=== PATIENT | male | born 1970 | race Caucasian/White ===

== ENCOUNTER → 2019-12-31 09:04 | Outpatient (BNVA) | payer BC, SELFPAY | PROVIDERS: Family Provider Family Medicine; PCP Family Medicine; Visit Provider Nurse Practitioner | DX: F33.0 Major depressive disorder, recurrent, mild (principal); F41.1 Generalized anxiety disorder | CPT/HCPCS: 99213 ==

== ENCOUNTER → 2020-03-24 08:22 | Outpatient (BNVA) | payer BC, SELFPAY | PROVIDERS: Family Provider Family Medicine; PCP Family Medicine; Visit Provider Nurse Practitioner | DX: F41.1 Generalized anxiety disorder (principal); F33.0 Major depressive disorder, recurrent, mild; F43.12 Post-traumatic stress disorder, chronic | CPT/HCPCS: 99213 ==

== ENCOUNTER 2020-04-10 21:50 | Inpatient (IN) | payer MEDICARE, SELFPAY ==
[2020-04-10 22:03] VITALS: BP 140/97; PULSE 90; RESP 16; TEMP 36.7; O2SAT 98; BMI 25.0
--- NOTE | 2020-04-10 22:13 | W.ED.PSYCH ---
HPI - Psych General: Chief Complaint: Psychiatric Symptoms Stated Complaint: mhe Time Seen by Provider: 04/10/20 22:13 Source: patient and other (Court ordered 96-hour hold) History of Present Illness: HPI Narrative: 50-year-old male brought in by [facility]'s department with court ordered 96-hour hold with affidavits attached. Patient denies being suicidal but admits to using meth 10 hours ago he smokes it never injects. Affidavit states that he has been using drugs and hallucinates hears things and sees things according to the affidavit patient denies this. Does not use alcohol but does vape. Denies any chest pain nausea vomiting or diarrhea. No fever chills or cough. He has not been taking his medications prescribed by his psychiatrist, Dr. Orr as prescribed. Denies being hospitalized here in the past or anywhere for psychiatric issues. Associated symptoms: Deny suicidal ideation Review of Systems General: Reports: 10 or more systems reviewed and unremarkable except in HPI and below Const: Denies: fever(s) or chills Eyes: Denies: change in vision ENMT: Denies: throat pain Card: Denies: chest pain Resp: Denies: dyspnea GI: Denies: abdominal pain, nausea, vomiting or change in bowel habits Musc: Denies: muscle weakness Skin/Breast: Denies: rash Neuro: Denies: headache(s) Psych: Denies: hopelessness or suicidal ideation Endo: Denies: polyuria Wolf/Lymph: Denies: easy bruising or easy bleeding All/Imm: Denies: urticaria PFSH ED PFSH: Medical History (Updated 04/10/20 @ 22:59 by Kika Dumont MD) Generalized anxiety disorder Major depressive disorder, recurrent, mild Social History (Updated 12/31/19 @ 09:20 by Brittani Fritz LPN) Smoking and tobacco status: current every day smoker e-cigarettes E-Cigarette Details: vaporizer device Physical Exam Const: COMMON NORMALS: no acute distress, patient oriented x3, alert and well nourished HENMT: COMMON NORMALS: normocephalic and Normal external nose present HEAD & SCALP: normocephalic NOSE: Normal external nose present MOUTH: no trismus Eye: COMMON NORMALS: EOMs intact bilaterally and conjunctivae normal CONJUNCTIVA: Yes conjunctivae normal Neck/C-Spine: COMMON NORMALS: full ROM, no lymphadenopathy and supple CERVICAL SPINE: Yes cervical ROM normal Lymph: LYMPHATIC: no lymphadenopathy noted Resp: COMMON NORMALS: normal respiratory effort, No retractions, No use of accessory muscles and clear to auscultation bilaterally EFFORT & INSPECTION: Yes able to speak in complete sentences AUSCULTATION: clear to auscultation bilaterally Cardio: COMMON NORMALS: regular rate and regular rhythm RATE: regular rate RHYTHM: regular rhythm GI: COMMON NORMALS: Normal to inspection, nondistended, normoactive bowel sounds present, Soft to palpation, non-tender and no masses INSPECTION: Yes normal to inspection AUSCULTATION: Yes normoactive bowel sounds PALPATION: Yes Soft to palpation, No Guarding due to palpation present (GI) and No Rigid due to palpation Back/Pelvis: OTHER: Normal range of motion Extremity: GENERAL: Yes normal exam except as noted Neuro: COMMON NORMALS: patient oriented x3 and CN's II-XII intact bilaterally SENSORIUM/ORIENTATION: Yes alert SPEECH: speech normal Psych: COMMON NORMALS: mental status grossly normal Skin: COMMON NORMALS: no rashes or lesions noted GENERAL SKIN EXAM: no rashes or lesions noted MDM - Psych MDM Narrative: Medical decision making narrative: d/w Dr Altamirano. Orders placed for admission to [facility] you. Lab Data: Attestation: I reviewed the patient's lab results. Labs: Lab Results 04/10/20 04/10/20 Range/Units 22:25 22:25 WBC 7.9 (4.0-10.0) 10^3/ uL RBC 5.03 (4.1-5.3) 10^6/u L Hgb 14.9 (11.7-16.6) g/dL Hct 45.8 (42.0-52.0) % MCV 91.1 (80-94) fL MCH 29.6 (28.0-34.0) pg MCHC 32.5 (30.0-36.0) g/dL RDW 13.4 (12.1-15.1) % Plt Count 320 (130-400) 10^3/c mm MPV 9.2 (7.4-10.4) fL Neut % (Auto) 60.4 % Lymph % (Auto) 25.2 % Isabela % (Auto) 11.4 % Eos % (Auto) 2.4 % Baso % (Auto) 0.5 % Neut # (Auto) 4.8 (1.8-7.7) 10^3/u L Lymph # (Auto) 2.0 (0.8-4.8) 10^3/u L Isabela # (Auto) 0.9 (0.2-0.9) 10^3/u L Eos # (Auto) 0.2 (0.0-0.8) 10^3/u L Baso # (Auto) 0.0 (0.0-0.1) 10^3/u L Nucleated RBC % (a uto) 0 % Nucleated RBCs # 0.0 /100WBC Sodium 138 (136-145) mmol/L Potassium 4.2 (3.5-5.1) mmol/L Chloride 99 (98-107) mmol/L Carbon Dioxide 28 (22-29) mmol/L Anion Gap 15.2 (5-19) BUN 14 (6-20) mg/dL Creatinine 1.0 (0.7-1.2) mg/dL GFR Calculation 79.1 L (90-130) mL/min Glucose 113 (65-115) mg/dL Calculated Osmolal ity 283 L (285-295) mOsm/k g Calcium 9.2 (8.5-10.5) mg/dL Total Bilirubin 0.2 (0.15-1.2) mg/dL AST 32 (0-40) U/L ALT 38 (0-41) U/L Alkaline Phosphata se 109 (40-130) IU/L Total Protein 7.3 (6.6-8.7) g/dL Albumin 4.7 (3.5-5.2) g/dL Globulin 2.6 (1.3-4.6) g/dL Salicylates 0.5 L (3-10) mg/dL Acetaminophen < 5.0 L (10-30) ug/mL Ethyl Alcohol < 10 (0-10) mg/dL EKG Data^: EKG 1: Attestation: I personally reviewed and interpreted this EKG as follows: EKG interpretation date: 04/10/20 EKG interpretation time: 22:43 Interpretation: Normal sinus rhythm rate [address] elevation, normal PA interval. Poor R wave progression Discharge Plan Discharge Patient Disposition: Admitted As Inpatient Clinical Impression: Substance abuse, Hallucinations Condition: Stable Prescriptions: No Action aripiprazole [Abilify] 10 mg tablet 10 mg PO DAILY Qty: 30 RF: 2 carbamazepine [Tegretol] 200 mg tablet See Rx Instructions PO BID Qty: 90 RF: 2 fluoxetine [Prozac] 20 mg capsule 20 mg PO DAILY Qty: 30 RF: 2 nortriptyline 75 mg capsule 75 mg PO .at bed Qty: 30 RF: 2 Referrals: Luiz Bermudez DO [Primary Care Provider] - Coding Level of Care Code ED Ethologist for Chg Fwd Exam Comprehensive
--- NOTE | 2020-04-10 22:14 | ECG_ITS ---
Measurements Intervals [place] Rate: 81 P: 62 [place]: 153 QRS: 60 QRSD: 105 T: 56 QT: 343 QTc: 398 SINUS RHYTHM No previous ECG available for comparison Electronically Signed On 04-11-2020 13:04:50 CDT by Alex Haines M.D. [email or web address]
[2020-04-10 22:36] LABS: Basophils % 0.5 %; Eosinophils # 0.2 10^3/uL (0.0-0.8); Eosinophils % 2.4 %; Hematocrit 45.8 % (42.0-52.0); Hemoglobin 14.9 g/dL (11.7-16.6); Lymphocytes % 25.2 %; Mean Corpuscular HGB Conc 32.5 g/dL (30.0-36.0); Mean Corpuscular Hemoglobin 29.6 pg (28.0-34.0); Mean Corpuscular Volume 91.1 fL (80-94); Mean Platelet Volume 9.2 fL (7.4-10.4); Monocytes # 0.9 10^3/uL (0.2-0.9); Monocytes % 11.4 %; Neutrophils # 4.8 10^3/uL (1.8-7.7); Neutrophils % 60.4 %; Nucleated Red Blood Cells % 0 %; Platelet Count 320 10^3/cmm (130-400); Red Blood Count 5.03 10^6/uL (4.1-5.3); Red Cell Distribution Width 13.4 % (12.1-15.1); White Blood Count 7.9 10^3/uL (4.0-10.0)
[2020-04-10 22:53] LABS: Acetaminophen < 5.0 ug/mL (10-30); Alanine Aminotransferase 38 U/L (0-41); Albumin Level 4.7 g/dL (3.5-5.2); Alcohol Level < 10 mg/dL (0-10); Alkaline Phosphatase 109 IU/L (40-130); Anion Gap 15.2 (5-19); Aspartate Amino Transferase 32 U/L (0-40); Blood Urea Nitrogen 14 mg/dL (6-20); Calcium 9.2 mg/dL (8.5-10.5); Carbon Dioxide 28 mmol/L (22-29); Chloride 99 mmol/L (98-107); Globulin 2.6 g/dL (1.3-4.6); Glomerular Filtration Rate 79.1 mL/min (90-130); Glucose 113 mg/dL (65-115); Osmolality Calculated 283 mOsm/kg (285-295); Potassium 4.2 mmol/L (3.5-5.1); Salicylate 0.5 mg/dL (3-10); Sodium 138 mmol/L (136-145); Total Bilirubin 0.2 mg/dL (0.15-1.2); Total Protein 7.3 g/dL (6.6-8.7)
[2020-04-10 23:32] VITALS: PULSE 89; RESP 16; O2SAT 96
[2020-04-10 23:33] VITALS: BP 125/88; PULSE 86; RESP 16; TEMP 36.7; O2SAT 94
[2020-04-11 00:36] LABS: Amphetamines Screen Urine Positive (Negative); Barbiturates Screen Urine Negative (Negative); Benzodiazepines Screen Urine Negative (Negative); Cocaine Screen Urine Negative (Negative); Opiate Screen Urine Negative (Negative); PCP Screen Urine Negative (Negative); THC Screen Urine Negative (Negative)
[2020-04-11 06:00] VITALS: BP 111/68; PULSE 79; RESP 17; TEMP 36.4; O2SAT 98
[2020-04-11] MEDS: hyDROXYzine 25 mg Capsule 50 MG PO (11:48)
--- NOTE | 2020-04-11 11:50 | PC.NURSE ---
PRN VISTARIL [address] PT C/O ANXIETY. PT STATED HE MIGHT BE HAVING A PANIC ATTACK. BP 132/89 HR 88. WILL CONT TO MONITOR.
[2020-04-11 13:08] VITALS: BP 129/80; PULSE 81; RESP 18; TEMP 36.6; O2SAT 100
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
[2020-04-11] MEDS: fluoxetine 20 mg Capsule PO (14:01)
[2020-04-11 19:35] VITALS: BP 112/76; PULSE 96; RESP 23; TEMP 36.8; O2SAT 99
[2020-04-11] MEDS: nortriptyline 25 mg Capsule 75 MG PO (20:10)
[2020-04-11] MEDS: trazodone 50 mg Tablet PO (20:10)
[2020-04-12 06:00] VITALS: BP 121/82; PULSE 95; RESP 20; TEMP 36.9; O2SAT 98
[2020-04-12] MEDS: fluoxetine 20 mg Capsule PO (08:18)
--- NOTE | 2020-04-12 10:04 | PM.NPN ---
Subjective NPU Subjective: Interval history: Patient is without complaint. No requests made. Patient acknowledges treatment plan and expected discharge planning to begin on Tuesday when the social media campaign manager and family are able to confer regarding whether he needs to go to inpatient rehab or outpatient. Selected Entries 04/11/20 06:00 04/11/20 13:08 04/11/20 19:35 Blood Pressure 111/68 129/80 112/76 04/12/20 06:00 Blood Pressure 121/82 Mental Status Exam MSE Comments: Mental Status Exam: The patient is a disheveled man with good eye contact. There are no tics or tremors. His speech is easily understood. He is believed to be a reliable informant of the best of his ability is information provided is internally consistent and consistent with that in his chart. Appearance: hygiene is fair; no gross neurological deficits., gait is unremarkable; AIMS=0 Speech: Speech is of normal rate and rhythm and easily understood. Thought processes: Thought processes are abstract. Judgment is not adequate for safety. Associations: intact Psychotic processes: There is no indication of guarding or paranoia. There is no attention to the internal stimuli. Auditory and visual hallucinations are denied. Judgment: Insight is fair. Problem solving skills are adequate for safety. Orientation: The patient is oriented to person, place time and situation. Memory: no deficits noted in immediate, intermediate, or remote spheres. Attention: The patient is alert and interpersonally engaged. Language: Verbalizations are coherent. Fund of knowledge: Fund of knowledge is adequate. Affect/Mood: Affect is consistent with a depressed mood. he denied suicidal ideation Affective range constricted Psychosis: perception unimpaired except through cognitive distortion; reality testing challenged but intact. Vitals/I&O/Wt Last Vital Signs Temp 98.4 F 04/12/20 06:00 Pulse 95 04/12/20 06:00 Resp 20 H 04/12/20 06:00 BP 121/82 04/12/20 06:00 Pulse Ox 98 04/12/20 06:00 Weight last 48 hrs Weight 74.843 kg Data NPU : 04/10/20 22:25 04/10/20 22:25 A&P Additional A&P Information Diagnoses: Amphetamine intoxication Amphetamine abuse disorder Major depression?recurrent, mild Assessment:Curtis Mcclellantyson is likely accurate and that he has fallen into a maladaptive pattern of methamphetamine use. He has poor insight into the specific effects of how methamphetamine has affected him but has good insight into how it has affected his family and life. Prognosis is good for him to achieve a clean state with assistance given his response to alcohol rehabilitation in the past. There is no indication that he truly does have bipolar disorder?type I. As such, he may not need the side effects that occur from medications for this diagnosis. However he does have a history of depression and we will restart those medications at this time. Treatment plan: Due to the psychiatric conditions and treatment listed in the Assessment and Plan - the patient requires continued hospitalization. Will provide a safe and therapeutic environment for patient.. Will continue inpatient treatment to allow for medication adjustment and monitoring. Will continue q15 min safety checks. Will restart fluoxetine 20 mg daily and nortriptyline 75 mg at bedtime. Trazodone 50 mg at bedtime will be provided in the hospital to assist with sleep. Hospital day #3: No changes at this time. Monitor patient's mood, sleep, appetite, and behavior closely. Encourage patient to participate in individual and group therapeutic sessions on the vivar. Estimated length of stay 5 days The expected benefits and potential side effects of patient's psychiatric medications were discussed with the patient. The patient understands and consents to treatment.CRITERIA FOR DISCHARGE: stable on medications and no longer an imminent risk Involuntary Hold Information 96 Hour Hold: 96 Hour Involuntary Admission: Yes 96 Hour Hold Ending Date: 04/16/20 96 Hour Hold Ending Time: 22:56 Attestations U Medical Necessity Statement*: Patient will remain in the hospital another 2-4 nights for assessment of medication efficacy and tolerability. Coding Level of Care Code Acute Clinical Nursing Instructor for Xena Rain
[2020-04-12 14:00] VITALS: BP 117/68; PULSE 67; RESP 18; TEMP 36.8
--- NOTE | 2020-04-12 14:36 | PC.RESP ---
Smoking Cessation information and a schedule of classes to patient.
[2020-04-12] MEDS: nortriptyline 25 mg Capsule 75 MG PO (20:39)
[2020-04-12] MEDS: trazodone 50 mg Tablet PO (20:39)
[2020-04-12] MEDS: hyDROXYzine 25 mg Capsule 50 MG PO (20:39)
--- NOTE | 2020-04-12 20:41 | PC.NURSE ---
TRAZODONE 50 MG PO GIVEN FOR SLEEP VISTARIL 50 MG PO GIVEN FOR ANXIETY.
[2020-04-12 21:43] VITALS: BP 125/70; PULSE 104; RESP 22; TEMP 36.7; O2SAT 97
[2020-04-13 06:00] VITALS: BP 114/80; PULSE 95; RESP 20; TEMP 36.4; O2SAT 98
[2020-04-13] MEDS: fluoxetine 20 mg Capsule PO (08:12)
--- NOTE | 2020-04-13 13:21 | P.PN_ITS ---
Subjective NPU Subjective: Interval history: Patient states that he feels much better. I again discussed the patient's pending discharge planning, which will get underway when the social sciences department chair and family confer regarding whether he needs to go to inpatient rehab or outpatient. Medications: Reviewed: Yes Medication Review Details: Current Medications Acetaminophen (Tylenol) 650 mg PO Q4H PRN PRN Reason: MILD PAIN Benztropine Mesylate (Cogentin) 1 mg PO BID PRN PRN Reason: Mild Extrapyramidal symptoms Camphor/Menthol/Phenol (Blistex) 1 applic TOPICAL Q1H PRN PRN Reason: DRYNESS Diphenhydramine HCl (Benadryl) 50 mg IM ONCE PRN PRN Reason: Severe Extrapyramidal Symptoms Diphenhydramine HCl (Benadryl) 50 mg IM Q4H PRN PRN Reason: Severe Aggression Fluoxetine HCl (Prozac) 20 mg PO DAILY [facility] Last Admin: 04/13/20 08:12 Dose: 20 mg Documented by: Haloperidol (Haldol) 5 mg PO Q4H PRN PRN Reason: AGITATION Haloperidol Lactate (Haldol Inj) 5 mg IM Q4H PRN PRN Reason: Severe Aggression Hydroxyzine Pamoate (Vistaril) 50 mg PO Q6H PRN PRN Reason: ANXIETY Last Admin: 04/12/20 20:39 Dose: 50 mg Documented by: Loperamide HCl (Imodium Capsule) 2 mg PO Q6H PRN PRN Reason: DIARRHEA Lorazepam (Ativan) 2 mg IM Q4H PRN PRN Reason: Severe Aggression Nicotine (Nicoderm 21 Mg Patch) 1 patch TRANSDERMA DAILY PRN PRN Reason: NICOTINE WITHDRAWAL Nicotine Polacrilex (Nicorette) 2 mg BUCCAL Q2H PRN PRN Reason: NICOTINE WITHDRAWAL Nortriptyline HCl (Pamelor) 75 mg PO BEDTIME [facility] Last Admin: 04/12/20 20:39 Dose: 75 mg Documented by: Olanzapine (Zyprexa Zydis) 5 mg PO Q4H PRN PRN Reason: Agitation/Psychosis Ondansetron HCl (Zofran) 4 mg PO Q6H PRN PRN Reason: NAUSEA AND VOMITING Trazodone HCl (Desyrel) 50 mg PO BEDTIME PRN PRN Reason: SLEEP Trazodone HCl (Desyrel) 50 mg PO BEDTIME [facility] Last Admin: 04/12/20 20:39 Dose: 50 mg Documented by: Mental Status Exam MSE Comments: The patient presents disheveled. He is quite jumpy but has good eye contact. There are no tics or tremors. His speech is easily understood. He is believed to be a reliable informant of the best of his ability as information provided is internally consistent and commensurate with that in his chart. Appearance: hygiene is fair; no gross neurological deficits., gait is u nremarkable; AIMS=0 Speech: Speech is of normal rate and rhythm and easily understood. There is no pressure or aprosody. Thought processes: Thought processes are abstract. There are no racing or fli ght of ideas. Judgment is not adequate for safety. There is no looseness of association. Psychotic processes: There is no indication of guarding or paranoia. There is no attention to the internal stimuli. Auditory and visual hallucinations are denied. Judgment: Insight is fair. I still think he is a little soft on getting into recovery. Problem solving skills are barely adequate for safety. Orientation: The patient is oriented to person, place time and situation. Memory: no deficits noted in immediate, intermediate, or remote spheres. Attention: The patient is alert and interpersonally engaged. Language: Verbalizations are coherent. Fund of knowledge: Fund of knowledge is adequate. Affect/Mood: Affect and mood are anxious and dysphoric. He denied suicidal ideation. Affective range constricted Psychosis: perception unimpaired except through cognitive distortion; reality testing challenged but intact. Vitals/I&O/Wt Last Vital Signs Temp 97.5 F L 04/13/20 06:00 Pulse 95 04/13/20 06:00 Resp 20 H 04/13/20 06:00 BP 114/80 04/13/20 06:00 Pulse Ox 98 04/13/20 06:00 Weight last 48 hrs Weight 171 lb 6.4 oz Data NPU : 04/10/20 22:25 04/10/20 22:25 Involuntary Hold Information 96 Hour Hold: 96 Hour Involuntary Admission: Yes 96 Hour Hold Ending Date: 04/16/20 96 Hour Hold Ending Time: 22:56 Attestations NPU Medical Necessity Statement*: Patient will remain in the hospital another 2-4 nights for assessment of medication efficacy and tolerability as well as formulation of a safe discharge plan. Time Spent in Patient Care: Greater than 35 minutes (Careful review of prior records. Consultation with patient. Documentation.) (>than 50% of time spent in counselling and/or direct pt care on unit) (This patient is still fragile and required careful understanding of the medical record and consultation with the patient for the purposes of education about potential treatment and discharge plan.) . Coding Level of Care Code Acute Environmental Maintenance Worker for Xena Rain
[2020-04-13 14:00] VITALS: BP 118/76; PULSE 79; RESP 19; TEMP 37
[2020-04-13 20:21] VITALS: BP 121/80; PULSE 108; RESP 17; TEMP 37; O2SAT 98
[2020-04-13] MEDS: nortriptyline 25 mg Capsule 75 MG PO (20:48)
[2020-04-13] MEDS: trazodone 50 mg Tablet PO (20:48)
[2020-04-14 06:00] VITALS: BP 117/83; PULSE 106; RESP 18; TEMP 36.7; O2SAT 99
[2020-04-14] MEDS: fluoxetine 20 mg Capsule PO (08:02)
[2020-04-14 13:34] VITALS: BP 119/82; PULSE 106; RESP 20; TEMP 36.9; O2SAT 100
--- NOTE | 2020-04-14 13:57 | PM.NDC ---
Diagnoses at Discharge Discharge Diagnosis (1) Substance abuse: Status: Acute Problem details: The patient well return to his home and go to recovery meetings. (2) Major depressive disorder, recurrent, mild: Status: Acute Problem details: The patient mood is now stable. Pharmacotherapy appears to be adequate at this point. (3) Generalized anxiety disorder: Status: Acute Problem details: Patient's anxiety is now in abeyance. Reason for Visit Reason for Visit: Reason For Visit: mhe Brief History: The patient was admitted under a 96-hour involuntary commitment fueled by affidavit filed by 4 different family members. They detail history over the past month of paranoia, psychosis, hearing auditory hallucinations, and bizarre behavior in the presence of increasing use of methamphetamine. The patient essentially confirms. He clearly states that some of the claims were about statements that he made ingest. He does not agree that he is psychotic. He denies he has ever had suicidal or homicidal ideation. However he admits that he is using methamphetamine and it is out of control. It is noted that he made a call to [facility] [place] requesting information regarding rehabilitation programs. He states he is using methamphetamine on a daily basis. For many years, he used it perhaps once per month. But over the past several months he has been using with increasing frequency. He does not feel that his thought processes are significantly impaired. However he acknowledges that there is increasing family discord, he is arguing with his much more, he feels irritable, and he is not sleeping well. Otherwise he has good hedonic capacity. He says that he is not sleeping well. He denies the presence of visual hallucinations. He denies paranoia. The affidavit in his chart detail paranoid ideation, delusional beliefs, and responding to auditory hallucinations. These are to such an extent that they were frightening the family, causing familial discord, and were severe enough that his and children left for their own safety. The affidavits did not detail that he was a harm to others. He is not perceived as a violent threat. Hospital Course Hospital Course Patient was admitted with methamphetamine-induced psychiatric symptoms. He was detoxed and placed on pharmacotherapy (see home meds) and quickly improved over the following days. He is now competent, per my assessment today, to transition to outpatient recovery meetings supported by his and to live at home. Discharge Summary The patient does not agree that he is psychotic. He denies he has ever had suicidal or homicidal ideation. However he admits that he is using methamphetamine and it is out of control. It is noted that he made a call to [facility] in July 2019 requesting information regarding rehabilitation programs. He states he is using methamphetamine on a daily basis. For many years, he used it perhaps once per month. But over the past several months he has been using with increasing frequency. He does not feel that his thought processes are significantly impaired. However he acknowledges that there is increasing family discord, he is arguing with his much more, he feels irritable, and he is not sleeping well. Otherwise he has good hedonic capacity. He says that he is not sleeping well. He denies the presence of visual hallucinations. He denies paranoia. The affidavit in his chart detail paranoid ideation, delusional beliefs, and responding to auditory hallucinations. These are to such an extent that they were frightening the family, causing familial discord, and were severe enough that his and children left for their own safety. The affidavits did not detail that he was a harm to others. He is not perceived as a violent threat. In the days following admission he very quickly reconstituted on pharmacotherapy in the absence of methamphetamine. He is now friendly, cooperative and able to make decisions for himself. He denies any suicidal or homicidal ideation, plan or intent. And there is no evidence to the contrary. Our facility planner has consulted with the patient's and she would like him to come home and go to recovery meetings. Involuntary Hold Information 96 Hour Hold: 96 Hour Involuntary Admission: Yes 96 Hour Hold Ending Date: 04/16/20 96 Hour Hold Ending Time: 22:56 Mental Status Exam MSE Comments: The patient presents in a more organized condition. He is calm and has good eye contact. There are no tics or tremors. His speech is easily understood. He is believed to be a reliable informant of the best of his ability as information provided is internally consistent and commensurate with that in his chart. Hygiene is fair; no gross neurological deficits., gait is unremarkable; AIMS=0 Speech is of normal rate and rhythm and easily understood. There is no pressure or aprosody. Thought processes are abstract. There are no racing or flight of ideas. Judgment is not adequate for safety. There is no looseness of association. There is no indication of guarding or paranoia. There is no attention to the internal stimuli. Auditory and visual hallucinations are denied. Insight is fair. I still think he is a little soft on getting into recovery. Problem solving skills are barely adequate for safety. The patient is oriented to person, place time and situation. There are no deficits noted in immediate, intermediate, or remote spheres. The patient is alert and interpersonally engaged. Verbalizations are coherent. Fund of knowledge is adequate. Mood is eager and affect is appropriate. He denied suicidal ideation. Perception is unimpaired except through cognitive distortion; reality testing is intact. Discharge Data Vitals: Last Vital Signs Temp 98.5 F 04/14/20 13:34 Pulse 106 H 04/14/20 13:34 Resp 20 H 04/14/20 13:34 BP 119/82 04/14/20 13:34 Pulse Ox 100 04/14/20 13:34 Discharge Plan Discharge Patient Disposition: Home, Self-Care Condition: Stable Prescriptions: Continued aripiprazole [Abilify] 10 mg tablet 10 mg PO DAILY Qty: 30 RF: 2 Tegretol 200 mg tablet See Rx Instructions PO BID 30 Days Qty: 90 RF: 2 nortriptyline 75 mg capsule 75 mg PO .at bed 30 Days Qty: 30 RF: 2 Prozac 20 mg capsule 20 mg PO DAILY 30 Days Qty: 30 RF: 2 Discharge Orders: Discharge Order (Routine); Ordered 04/14/20 Ordered By: Deni Cheema Discharge Diet: Usual diet Discharge Activity: Resume usual activity Discharge Attestations NPU Time Spent in Discharge Care*: greater than 30 min Coding Level of Care Code Acute Public Health Dietitian for g Fwd Diagnoses Substance abuse F19.10 Major depressive disorder, recurrent, mild F33.0 Generalized anxiety disorder F41.1
[2020-04-14 14:41] VITALS: BP 119/82; PULSE 106; RESP 20; TEMP 36.9; O2SAT 100
== END 2020-04-14 17:41 | disposition home or self-care (01) | DRG 897 ==
LOC: ER 22:59 → NP 23:11
PROVIDERS: Emergency Medicine; Admitting Provider Psychiatry & Neurology Psychiatry; Emergency Provider Emergency Medicine; PCP Family Medicine; Visit Provider Psychiatry & Neurology Psychiatry
DX: F15.259 Other stimulant dependence with stimulant-induced psychotic disorder, unspecified (principal); F33.0 Major depressive disorder, recurrent, mild; F41.1 Generalized anxiety disorder; F17.290 Nicotine dependence, other tobacco product, uncomplicated
CPT/HCPCS: 12345; 80053; 80306; 80307; 85025; 93005; 99284

== ENCOUNTER 2020-10-16 13:04 | Inpatient (IN) | payer MEDICARE, SELFPAY ==
[2020-10-16 13:06] VITALS: BP 166/104; PULSE 113; RESP 18; TEMP 36.7; O2SAT 97; BMI 25.0
[2020-10-16 13:53] LABS: Basophils % 0.4 %; Eosinophils % 0.2 %; Hematocrit 43.4 % (42.0-52.0); Hemoglobin 14.7 g/dL (11.7-16.6); Lymphocytes # 2.1 10^3/uL (0.8-4.8); Lymphocytes % 20.1 %; Mean Corpuscular HGB Conc 33.9 g/dL (30.0-36.0); Mean Corpuscular Hemoglobin 29.5 pg (28.0-34.0); Mean Corpuscular Volume 87.1 fL (80-94); Mean Platelet Volume 9.2 fL (7.4-10.4); Monocytes # 0.7 10^3/uL (0.2-0.9); Monocytes % 6.9 %; Neutrophils # 7.62 10^3/uL (1.8-7.7); Neutrophils % 72.3 %; Nucleated Red Blood Cells % 0 %; Platelet Count 346 10^3/cmm (130-400); Red Blood Count 4.98 10^6/uL (4.1-5.3); Red Cell Distribution Width 13.2 % (12.1-15.1); White Blood Count 10.5 10^3/uL (4.0-10.0)
--- NOTE | 2020-10-16 13:54 | W.ED.PSYCH ---
HPI - Psych General: Chief Complaint: Psychiatric Symptoms Stated Complaint: wants stress unit bed Time Seen by Provider: 10/16/20 13:09 History of Present Illness: HPI Narrative: This patient is a 50-year-old male who presents today stating that he needs help with getting back on his medications. He admits to using meth a few days ago and said he is had a problem within the past. He would like to get clean again. He also wants to get back on his medications. He said he has been off them for about 6 months. His tells me that he was on nortriptyline, Abilify, Prozac and carbamazepine. Patient himself is quite agitated and keeps asking what is wrong with him. He said on the way here his gave him a bottle of Gatorade and it tasted and smelled funny. He seems to think that she may have tried to poison him. He says they have been having problems with their marriage. I spoke with his by phone and she tells me that she had been away for a few days because her daughter just had a baby. She thinks that he probably used meth while she was going on. She was bring him to the hospital at his request today. She said as they were driving into town there was a smell from outside the car. He became very upset and accused her of having chemicals in the car trying to harm him. She said he tried to jump out of the car while it was moving. She was able to boat puller close to the hospital and he got out and walked the rest of the way. She said he is actively hallucinating and delusional. He thinks that they were followed to the hospital by some unknown people. She says he is not able to tell what is real and not. I completely agree with that assessment after talking to him myself. He denies suicidal ideation but clearly is a danger to himself. complaint: altered mental status Onset (ago): day(s) (A few days) History of same: Yes Relieving factors: none Exacerbating factors: drug use Context: recent drug abuse Associated psychiatric symptoms: depression, auditory hallucinations, visual hallucinations and delusions Associated symptoms: Reports auditory hallucinations, visual hallucinations, depression and racing thoughts Treatments prior to arrival: none Review of Systems General: Reports: 10 or more systems reviewed and unremarkable except in HPI and below Const: Denies: fever(s), chills, fatigue or malaise Eyes: Denies: change in vision ENMT: Denies: odynophagia Card: Denies: chest pain or swelling of feet/ankles Resp: Denies: dyspnea, productive cough or non-productive cough GI: Denies: abdominal pain, nausea or vomiting : Denies: flank pain Musc: Denies: neck pain or back pain Skin/Breast: Denies: rash Neuro: Reports: dizziness; Denies: headache(s), numbness in extremities or weakness in extremities Psych: Reports: anxiety, depression, mood swings, irritability, paranoia, difficulty concentrating, visual hallucinations and auditory hallucinations Wolf/Lymph: Denies: easy bruising or easy bleeding PFSH ED PFSH: Medical History (Updated 10/17/20 @ 13:02 by Edwardo Cornejo MD) Generalized anxiety disorder Patient's anxiety is now in abeyance. Major depressive disorder, recurrent, mild The patient mood is now stable. Pharmacotherapy appears to be adequate at this point. Social History (Updated 12/31/19 @ 09:20 by Brittani Fritz LPN) Smoking and tobacco status: current every day smoker e-cigarettes E-Cigarette Details: vaporizer device Physical Exam Const: COMMON NORMALS: no acute distress, patient oriented x3 and alert GENERAL APPEARANCE: cooperative HENMT: HEAD & SCALP: normal to inspection FACE & SINUS: normal facial exam Eye: GENERAL EYE: appearance normal, both eyes and all related structures Neck/C-Spine: COMMON NORMALS: supple, no meningeal signs and no JVD Chest: COMMONS NORMALS: normal inspection of the chest Resp: COMMON NORMALS: normal respiratory effort, No use of accessory muscles and clear to auscultation bilaterally AUSCULTATION: clear to auscultation bilaterally Cardio: COMMON NORMALS: no JVD, regular rate, regular rhythm and No murmurs present (Cardio) RATE: regular rate RHYTHM: regular rhythm GI: COMMON NORMALS: Normal to inspection, nondistended, normoactive bowel sounds present, Soft to palpation and non-tender INSPECTION: Yes normal to inspection AUSCULTATION: Yes normoactive bowel sounds PALPATION: Yes Soft to palpation Back/Pelvis: COMMON NORMALS: thoracic and lumbar spine normal to inspection Extremity: COMMON NORMALS: normal to inspection Neuro: COMMON NORMALS: patient oriented x3, moves all extremities, no focal motor deficits and no sensory deficits noted SENSORIUM/ORIENTATION: Yes alert MENINGEAL SIGNS: Yes no meningeal signs Psych: COMMON NORMALS: mental status grossly normal, cooperative and normal affect Skin: COMMON NORMALS: no rashes or lesions noted and turgor normal GENERAL SKIN EXAM: no rashes or lesions noted and turgor normal MDM - Psych Lab Data: Labs: Lab Results 10/16/20 10/16/20 10/16/20 Range/Units 13:35 13:47 13:47 WBC 10.5 H (4.0-10.0) 10^3/ uL RBC 4.98 (4.1-5.3) 10^6/u L Hgb 14.7 (11.7-16.6) g/dL Hct 43.4 (42.0-52.0) % MCV 87.1 (80-94) fL MCH 29.5 (28.0-34.0) pg MCHC 33.9 (30.0-36.0) g/dL RDW 13.2 (12.1-15.1) % Plt Count 346 (130-400) 10^3/c mm MPV 9.2 (7.4-10.4) fL Neut % (Auto) 72.3 % Lymph % (Auto) 20.1 % [place] % (Auto) 6.9 % Eos % (Auto) 0.2 % Baso % (Auto) 0.4 % Neut # (Auto) 7.62 (1.8-7.7) 10^3/u L Lymph # (Auto) 2.1 (0.8-4.8) 10^3/u L [place] # (Auto) 0.7 (0.2-0.9) 10^3/u L Eos # (Auto) 0.0 (0.0-0.8) 10^3/u L Baso # (Auto) 0.0 (0.0-0.1) 10^3/u L Nucleated RBC % (a uto) 0 % Nucleated RBCs # 0.0 /100WBC Sodium 137 (136-145) mmol/L Potassium 3.5 (3.5-5.1) mmol/L Chloride 102 (98-107) mmol/L Carbon Dioxide 21 L (22-29) mmol/L Anion Gap 17.5 (5-19) BUN 14 (6-20) mg/dL Creatinine 0.8 (0.7-1.2) mg/dL GFR Calculation 102.3 (90-130) mL/min Glucose 120 H (65-115) mg/dL Calculated Osmolal ity 286 (285-295) mOsm/k g Calcium 9.4 (8.5-10.5) mg/dL Total Bilirubin 0.4 (0.15-1.2) mg/dL AST 47 H (0-40) U/L ALT 52 H (0-41) U/L Alkaline Phosphata se 90 (40-130) IU/L Total Protein 7.6 (6.6-8.7) g/dL Albumin 4.8 (3.5-5.2) g/dL Globulin 2.8 (1.3-4.6) g/dL TSH 1.51 (0.27-4.20) uIU/ mL Salicylates < 0.3 L (3-10) mg/dL Urine Opiates Scre en Negative (Negative) ng/mL Acetaminophen < 5.0 L (10-30) ug/mL Ur Barbiturates Sc reen Negative (Negative) ng/mL Ur Phencyclidine S crn Negative (Negative) ng/mL Ur Amphetamines Sc reen Positive H (Negative) ng/mL U Benzodiazepines Scrn Negative (Negative) ng/mL Urine Cocaine Scre en Negative (Negative) ng/mL U Marijuana (THC) Screen Negative (Negative) ng/mL Ethyl Alcohol < 10 (0-10) mg/dL Discharge Plan Discharge Patient Disposition: Admitted As Inpatient Admit Provider: Edwardo Cornejo Condition: Stable Coding Level of Care Code ED Hem Inspector for Xena Fwd Exam Comprehensive
[2020-10-16] MEDS: ziprasidone hcl 20 mg Capsule PO (13:55)
[2020-10-16] MEDS: LORazepam 1 mg Tablet PO (13:56)
[2020-10-16 14:24] LABS: Alanine Aminotransferase 52 U/L (0-41); Albumin Level 4.8 g/dL (3.5-5.2); Alkaline Phosphatase 90 IU/L (40-130); Anion Gap 17.5 (5-19); Aspartate Amino Transferase 47 U/L (0-40); Blood Urea Nitrogen 14 mg/dL (6-20); Calcium 9.4 mg/dL (8.5-10.5); Carbon Dioxide 21 mmol/L (22-29); Chloride 102 mmol/L (98-107); Creatinine Clr Calc Pharmacy 110.9019; Globulin 2.8 g/dL (1.3-4.6); Glomerular Filtration Rate 102.3 mL/min (90-130); Glucose 120 mg/dL (65-115); Osmolality Calculated 286 mOsm/kg (285-295); Potassium 3.5 mmol/L (3.5-5.1); Sodium 137 mmol/L (136-145); Thyroid Stimulating Hormone 1.51 uIU/mL (0.27-4.20); Total Bilirubin 0.4 mg/dL (0.15-1.2); Total Protein 7.6 g/dL (6.6-8.7)
[2020-10-16 14:38] LABS: Acetaminophen < 5.0 ug/mL (10-30); Alcohol Level < 10 mg/dL (0-10); Salicylate < 0.3 mg/dL (3-10)
[2020-10-16 14:41] LABS: Amphetamines Screen Urine Positive (Negative); Barbiturates Screen Urine Negative (Negative); Benzodiazepines Screen Urine Negative (Negative); Cocaine Screen Urine Negative (Negative); Opiate Screen Urine Negative (Negative); PCP Screen Urine Negative (Negative); THC Screen Urine Negative (Negative)
--- NOTE | 2020-10-16 15:12 | PC.NURSE ---
nurse in to check on patient and pt still seems anxious. pt still pacing in room. pt states I need to talk to my mom. pt asking for food and drink. pt cooperative with staff. will continue to monitor.
[2020-10-16 15:28] VITALS: BP 145/98; PULSE 88; O2SAT 95
[2020-10-16 15:33] VITALS: BP 133/87; PULSE 107; RESP 20; TEMP 37.5; O2SAT 100
[2020-10-16] MEDS: nicotine 2 mg Gum BUCCAL ×2 (17:03→23:34)
[2020-10-16 20:11] VITALS: BP 130/86; PULSE 88; RESP 19; TEMP 36.7; O2SAT 97
--- NOTE | 2020-10-17 01:27 | PC.NURSE ---
The patient was at the nurse's station around 11 pm. He had several questions about the 96 hour hold. He did not understand why he can't leave the hospital tonight. He did not seem to be able to retain information. He would say, I don't understand. I'm disabled as he would point to his head. He sat on the bench by the nurse's station and could be heard conversing, possibly auditory hallucinations. He was restless and pacing in the hallway. He refused PRN medications for anxiety and to help him sleep. At this time (0120) he is pacing in the hallway and testing doors for exit.
[2020-10-17 06:00] VITALS: BP 126/91; PULSE 100; RESP 18; TEMP 36.6; O2SAT 96
[2020-10-17] MEDS: nicotine 2 mg Gum BUCCAL ×2 (07:40→11:30)
[2020-10-17] MEDS: hyDROXYzine 25 mg Capsule 50 MG PO (10:07)
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
[2020-10-17] MEDS: fluoxetine 20 mg Capsule PO (13:34)
[2020-10-17] MEDS: ARIPiprazole 10 mg Tablet PO (13:34)
[2020-10-17 13:36] VITALS: BP 116/75; PULSE 81; RESP 18; TEMP 37.2; O2SAT 97
[2020-10-17] MEDS: trazodone 50 mg Tablet PO (21:32)
--- NOTE | 2020-10-17 21:33 | PC.NURSE ---
PRN TRAZODONE PT REQUESTING SLEEP AID. ADMINISTERED TRAZODONE 50MG PO. WILL MONITOR FOR MEDICATION EFFECTIVENESS.
[2020-10-17 22:00] VITALS: BP 128/79; PULSE 81; RESP 18; TEMP 36.5; O2SAT 97
[2020-10-18 06:00] VITALS: BP 128/78; PULSE 73; RESP 17; TEMP 36.6; O2SAT 95
[2020-10-18] MEDS: fluoxetine 20 mg Capsule PO (08:16)
[2020-10-18] MEDS: ARIPiprazole 10 mg Tablet PO (08:17)
[2020-10-18 13:30] VITALS: BP 138/86; PULSE 97; RESP 18; TEMP 36.9
--- NOTE | 2020-10-18 16:11 | P.PN_ITS ---
Subjective NPU Subjective: Interval history: Curtis presents today reporting that he is feeling a little better. The resumption of his medication is thus far led to improvement. Discussed the results and alternatives of restarting some of his other medications tomorrow and he understood and agreed to proceed as is documented in his note. He reports that he has been talking to his family and that he understands that he needs to manage his sobriety if things are going to get better. He reports he is eating okay and sleeping a little better. Mental Status Exam MSE Comments: This is a well-nourished, well-developed white male with adequate dress, grooming and eye contact. No abnormal movements. Cooperative with exam in no acute distress. Speech was normal rate and volume. Mood described as feeling a bit better affect congruent. Thought process organized. Thought content: Patient denied any suicidal or homicidal ideations, there were no delusions reported or noted, he denied any auditory or visual hallucinations which were all significant improvements from yesterday. Attention and concentration were intact and memory appeared reliable but none were formally tested. He is alert and oriented x3. Insight and judgment are improving. Impulse control limited. Vitals/I&O/Wt Last Vital Signs Temp 98.1 F 10/18/20 21:00 Pulse 81 10/18/20 21:00 Resp 17 10/18/20 21:00 BP 142/92 10/18/20 21:00 Pulse Ox 93 10/18/20 21:00 Data NPU : 10/16/20 13:47 10/16/20 13:47 A&P Additional A&P Information (1) Substance abuse: (2) Hallucinations: (3) Generalized anxiety disorder: (4) Major depressive disorder, recurrent, mild: (5) Methamphetamine abuse: (6) Methamphetamine intoxication: Additional A&P Information Curtis presented reporting active intent, mood dysregulation and being off of his medication with an openness to restart his medication and treatment. 1. Continue current medication. Consider restarting Tegretol tomorrow. 2. Continue every 15 minute checks for safety. 3. Encourage individual, group and milieu therapies. 4. Encourage sober living treatment at the highest level of care to which he is willing to commit! Involuntary Hold Information 96 Hour Hold: 96 Hour Involuntary Admission: Yes 96 Hour Hold Ending Date: 10/22/20 96 Hour Hold Ending Time: 13:35 Attestations NPU Medical Necessity Statement*: Inpatient hospitalization is medically necessary and the clinically appropriate intervention at this time. We will monitor medications and make changes as indicated. Likely length of stay 2 to 3 days. Coding Level of Care Code Acute Engineering Consultant for [employer]ena Rain
[2020-10-18] MEDS: nicotine 2 mg Gum BUCCAL (17:25)
[2020-10-18] MEDS: OLANZapine 5 mg ODT PO (19:48)
--- NOTE | 2020-10-18 19:50 | PC.NURSE ---
PRN ZYPREXA ADMINISTERED ZYPREXA ZYDIS 5MG SUBLINGUAL PER PT REQUEST FOR INCREASING AGITATION AND HEARING VOICES. WILL MONITOR FOR MEDICATION EFFECTIVENESS.
[2020-10-18 21:00] VITALS: BP 142/92; PULSE 81; RESP 17; TEMP 36.7; O2SAT 93
[2020-10-19 06:00] VITALS: BP 136/88; PULSE 79; RESP 15; TEMP 36.8; O2SAT 97
[2020-10-19] MEDS: fluoxetine 20 mg Capsule PO (08:25)
[2020-10-19] MEDS: ARIPiprazole 10 mg Tablet PO (08:25)
[2020-10-19] MEDS: nicotine 2 mg Gum BUCCAL ×2 (10:20→15:28)
[2020-10-19 13:41] VITALS: BP 124/75; PULSE 86; RESP 18; TEMP 37.1; O2SAT 96
--- NOTE | 2020-10-19 13:43 | PM.NPN ---
Subjective NPU Subjective: Interval history: Curtis presents today reporting that he is feeling better. He reports he has been in contact with family and that they are supportive of him getting better. Happy to see him getting back on his medication. We discussed the risks, benefits and alternatives of him restarting his Tegretol and he understood and agreed to proceed as is documented in this note. Reports he is eating and sleeping better. We discussed discharge plans and him working with the full treatment team tomorrow to make sure everything is in place for a more positive outcome. Mental Status Exam MSE Comments: This is a well-nourished, well-developed white male with adequate dress, grooming and eye contact. No abnormal movements. Cooperative with exam in no acute distress. Speech was normal rate and volume. Mood described as feeling better affect congruent. Thought process organized. Thought content: Patient denied any suicidal or homicidal ideations, there were no delusions reported or noted, he denied any auditory or visual hallucinations which were all significant improvements from yesterday. Attention and concentration were intact and memory appeared reliable but none were formally tested. He is alert and oriented x3. Insight and judgment are improving. Impulse control limited. Vitals/I&O/Wt Last Vital Signs Temp 98.2 F 10/19/20 06:00 Pulse 79 10/19/20 06:00 Resp 15 10/19/20 06:00 BP 136/88 10/19/20 06:00 Pulse Ox 97 10/19/20 06:00 Weight last 48 hrs Weight 74.843 kg Data NPU : 10/16/20 13:47 10/16/20 13:47 A&P Additional A&P Information (1) Substance abuse: (2) Hallucinations: (3) Generalized anxiety disorder: (4) Major depressive disorder, recurrent, mild: (5) Methamphetamine abuse: (6) Methamphetamine intoxication: Curtis presented reporting active intent, mood dysregulation and being off of his medication with an openness to restart his medication and treatment. 1. Continue current medication. Start Tegretol 100 mg p.o. twice daily and titrate to effect. 2. Continue every 15 minute checks for safety. 3. Encourage individual, group and milieu therapies. 4. Encourage sober living treatment at the highest level of care to which he is willing to commit! Involuntary Hold Information 96 Hour Hold: 96 Hour Involuntary Admission: Yes 96 Hour Hold Ending Date: 10/22/20 96 Hour Hold Ending Time: 13:35 Attestations NPU Medical Necessity Statement*: Inpatient hospitalization is medically necessary and the clinically appropriate intervention at this time. We will monitor medications and make changes as indicated. Likely length of stay 1 to 3 days. Coding Level of Care Code Acute Learning Specialist for Xena Rain
[2020-10-19 19:55] VITALS: BP 131/78; PULSE 76; RESP 17; TEMP 37.1; O2SAT 95
[2020-10-19] MEDS: trazodone 50 mg Tablet PO (20:08)
[2020-10-19] MEDS: hyDROXYzine 25 mg Capsule 50 MG PO (20:08)
[2020-10-20 05:32] VITALS: BP 136/83; PULSE 103; RESP 17; TEMP 36.6; O2SAT 96
[2020-10-20] MEDS: fluoxetine 20 mg Capsule PO (08:05)
[2020-10-20] MEDS: ARIPiprazole 10 mg Tablet PO (08:05)
[2020-10-20] MEDS: carBAMazepine 200 mg Tablet 100 MG PO (09:14)
[2020-10-20] MEDS: nicotine 2 mg Gum BUCCAL (09:49)
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
[2020-10-20] MEDS: nicotine 21 mg Patch 1 PATCH TRANSDERMA (12:43)
[2020-10-20 13:38] VITALS: BP 136/83; PULSE 103; RESP 17; TEMP 36.6; O2SAT 96
--- NOTE | 2020-10-20 14:59 | PC.SOCIAL ---
IMM was provided
--- NOTE | 2020-10-21 15:03 | PC.RESP ---
Smoking Cessation information sent to patient.
== END 2020-10-20 15:36 | disposition home or self-care (01) | DRG 885 ==
LOC: ER 13:37 → NP 15:00
PROVIDERS: Admitting Provider Psychiatry & Neurology Psychiatry; Emergency Provider Emergency Medicine; PCP Family Medicine; Visit Provider Psychiatry & Neurology Psychiatry
DX: F33.0 Major depressive disorder, recurrent, mild (principal); R45.851 Suicidal ideations; F15.229 Other stimulant dependence with intoxication, unspecified; F41.1 Generalized anxiety disorder; F17.290 Nicotine dependence, other tobacco product, uncomplicated
CPT/HCPCS: 12345; 36415; 80053; 80306; 80307; 84443; 85025; 99284

== ENCOUNTER → 2020-11-03 08:04 | Outpatient (BNVA) | payer MEDICARE, SELFPAY | PROVIDERS: PCP Family Medicine; Visit Provider Nurse Practitioner | DX: F33.0 Major depressive disorder, recurrent, mild (principal); F41.1 Generalized anxiety disorder | CPT/HCPCS: 99214 ==

== ENCOUNTER → 2021-03-11 08:00 | Outpatient (BNVA) | payer MEDICARE, SELFPAY | PROVIDERS: PCP Family Medicine; Visit Provider Nurse Practitioner | DX: F33.0 Major depressive disorder, recurrent, mild (principal); F15.10 Other stimulant abuse, uncomplicated | CPT/HCPCS: 99214 ==

== ENCOUNTER 2025-11-01 12:57 | Inpatient (IN) | payer SELFPAY ==
[2025-11-01 13:03] VITALS: BP 170/92; PULSE 69; RESP 18; TEMP 36.4; O2SAT 99
--- NOTE | 2025-11-01 13:16 | W.ED.PSYCHS ---
HPI - Psych General: Chief Complaint: Psychiatric Symptoms Stated Complaint: 96 Time Seen by Provider: 11/01/25 12:58 Source: patient and police Mode of arrival: ambulatory Limitations: no limitations History of Present Illness: 55-year-old male brought in by police on a court order 96-hour hold. Per police patient has been having hallucinations family states he had been yelling at neighbors and seeing people that were not there. Patient does have a history of bipolar and has not been taking his meds he denies suicidal or homicidal ideations. Related Data Home Medications ?Medication ?Instructions ?Recorded ?Confirmed albuterol sulfate 90 mcg/actuation 1 puff inhalation Q4H PRN 11/01/25 11/01/25 aerosol inhaler (Ventolin HFA) Shortness Of Breath amoxicillin 875 mg-potassium 1 tab PO Q12H 11/01/25 11/01/25 clavulanate 125 mg tablet rosuvastatin 5 mg tablet 5 mg PO DAILY 11/01/25 11/01/25 Previous Rx's ?Medication ?Instructions ?Recorded fluoxetine 20 mg capsule (Prozac) 20 mg PO DAILY 30 days #30 caps 03/11/21 Allergies Allergy/AdvReac Type Severity Reaction Status Date / Time No Known Allergies Allergy Unverified 10/16/20 13:11 [facility] PFSH: Medical History (Updated 11/01/25 @ 13:25 by Anny Deleon MD) Generalized anxiety disorder Major depressive disorder, recurrent, mild Social History (Updated 12/31/19 @ 09:20 by Brittani Rao LPN) Smoking and tobacco/nicotine status: current every day tobacco/nicotine user e-cigarettes E-Cigarette Details: vaporizer device Physical Exam Const: COMMON NORMALS: no acute distress, patient oriented x3 and healthy appearing HENMT: COMMON NORMALS: normocephalic and atraumatic HEAD & SCALP: normocephalic and atraumatic Neck/C-Spine: COMMON NORMALS: full ROM and supple Chest: COMMONS NORMALS: normal inspection of the chest Resp: COMMON NORMALS: normal respiratory effort Cardio: COMMON NORMALS: regular rate, regular rhythm and No murmurs present (Cardio) RATE: regular rate RHYTHM: regular rhythm Extremity: COMMON NORMALS: normal to inspection and full ROM Neuro: COMMON NORMALS: patient oriented x3, moves all extremities and no focal motor deficits Psych: COMMON NORMALS: mental status grossly normal, Normal thought process present and cooperative THOUGHT PROCESS: Normal thought process present Skin: COMMON NORMALS: no rashes or lesions noted and no wounds GENERAL SKIN EXAM: no rashes or lesions noted Course Vital Signs: Vital signs: Vital Signs Temperature 97.5 F L 11/01/25 13:03 Pulse Rate 69 11/01/25 13:03 Respiratory Rate 18 11/01/25 13:03 Blood Pressure 170/92 11/01/25 13:03 Pulse Oximetry 99 11/01/25 13:03 Oxygen Delivery Me thod Room Air 11/01/25 13:03 MDM - Psych Medical Decision Making Patient presents here with acute psychosis with hallucinations he was placed on a court order 96-hour hold. He has been medically cleared labs show no significant abnormalities spoke to Dr. Cornejo psychiatrist and will admit to the Neuropsych Unit. Medical Records I reviewed the patient's medical records. Lab Data I reviewed the patient's lab results. 11/01/25 13:24 11/01/25 13:24 Laboratory Results WBC 7.98 10^3/uL (3.29-11.43) 11/01/25 13:24 RBC 4.80 10^6/uL (3.85-5.65) 11/01/25 13:24 Hgb 14.60 g/dL (11.27-16.99) 11/01/25 13:24 Hct 42.2 % (37-53) 11/01/25 13:24 MCV 87.9 fl (82-101) 11/01/25 13:24 MCH 30.4 pg (27-33) 11/01/25 13:24 MCHC 34.6 g/dL (30-55) 11/01/25 13:24 RDW 13.2 % (12.1-15.1) 11/01/25 13:24 Plt Count 285 10^3/cmm (157-399) 11/01/25 13:24 MPV 9.5 fL (7.4-10.4) 11/01/25 13:24 Neut % (Auto) 71.6 % 11/01/25 13:24 Lymph % (Auto) 19.4 % 11/01/25 13:24 Carson % (Auto) 6.6 % 11/01/25 13:24 Eos % (Auto) 1.3 % 11/01/25 13:24 Baso % (Auto) 0.8 % 11/01/25 13:24 Neut # (Auto) 5.72 10^3/uL (1.8-7.7) 11/01/25 13:24 Lymph # (Auto) 1.6 10^3/uL (0.8-4.8) 11/01/25 13:24 Carson # (Auto) 0.5 10^3/uL (0.2-0.9) 11/01/25 13:24 Eos # (Auto) 0.1 10^3/uL (0.0-0.8) 11/01/25 13:24 Baso # (Auto) 0.1 10^3/uL (0.0-0.1) 11/01/25 13:24 Nucleated RBC % (auto) 0 % 11/01/25 13:24 Nucleated RBCs # 0.0 /100WBC 11/01/25 13:24 Sodium 138 mmol/L (136-145) 11/01/25 13:24 Potassium 3.8 mmol/L (3.5-5.1) 11/01/25 13:24 Chloride 101 mmol/L (98-107) 11/01/25 13:24 Carbon Dioxide 27 mmol/L (22-29) 11/01/25 13:24 Anion Gap 13.8 (5-19) 11/01/25 13:24 BUN 8 mg/dL (6-20) 11/01/25 13:24 Creatinine 0.8 mg/dL (0.7-1.2) 11/01/25 13:24 GFR Calculation 100.4 mL/min (90-130) 11/01/25 13:24 Glucose 133 mg/dL (65-115) H 11/01/25 13:24 Calculated Osmolality 286 mOsm/kg (285-295) 11/01/25 13:24 Calcium 9.2 mg/dL (8.5-10.5) 11/01/25 13:24 Total Bilirubin 0.3 mg/dL (0.15-1.2) 11/01/25 13:24 AST 26 U/L (0-40) 11/01/25 13:24 ALT 18 U/L (0-41) 11/01/25 13:24 Alkaline Phosphatase 89 U/L (40-130) 11/01/25 13:24 Total Protein 7.3 g/dL (6.6-8.7) 11/01/25 13:24 Albumin 4.6 g/dL (3.5-5.2) 11/01/25 13:24 Globulin 2.7 g/dL (1.3-4.6) 11/01/25 13:24 Salicylates < 0.3 mg/dL (3-10) L 11/01/25 13:24 Urine Opiates Screen Negative ng/mL (Negative) 11/01/25 13:05 Acetaminophen < 5.0 ug/mL (10-30) L 11/01/25 13:24 Ur Barbiturates Screen Negative ng/mL (Negative) 11/01/25 13:05 Ur Phencyclidine Scrn Negative ng/mL (Negative) 11/01/25 13:05 Ur Amphetamines Screen Negative ng/mL (Negative) 11/01/25 13:05 U Benzodiazepines Scrn Negative ng/mL (Negative) 11/01/25 13:05 Urine Cocaine Screen Negative ng/mL (Negative) 11/01/25 13:05 U Marijuana (THC) Screen Negative ng/mL (Negative) 11/01/25 13:05 Ethyl Alcohol < 10 mg/dL (0-10) 11/01/25 13:24 No radiology studies performed this visit Discharge Plan Discharge Patient Disposition: Admitted As Inpatient Clinical Impression: Acute psychosis Condition: Stable Coding Level of Care Code 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
[2025-11-01 13:30] LABS: Hematocrit 42.2 % (37-53); Hemoglobin 14.60 g/dL (11.27-16.99); Mean Corpuscular HGB Conc 34.6 g/dL (30-55); Mean Corpuscular Hemoglobin 30.4 pg (27-33); Mean Corpuscular Volume 87.9 fl (82-101); Nucleated Red Blood Cells % 0 %; Platelet Count 285 10^3/cmm (157-399); Red Blood Count 4.80 10^6/uL (3.85-5.65); White Blood Count 7.98 10^3/uL (3.29-11.43)
[2025-11-01 13:53] LABS: Alanine Aminotransferase 18 U/L (0-41); Albumin Level 4.6 g/dL (3.5-5.2); Alkaline Phosphatase 89 U/L (40-130); Anion Gap 13.8 (5-19); Aspartate Amino Transferase 26 U/L (0-40); Blood Urea Nitrogen 8 mg/dL (6-20); Calcium 9.2 mg/dL (8.5-10.5); Carbon Dioxide 27 mmol/L (22-29); Chloride 101 mmol/L (98-107); Globulin 2.7 g/dL (1.3-4.6); Glucose 133 mg/dL (65-115); Osmolality Calculated 286 mOsm/kg (285-295); Potassium 3.8 mmol/L (3.5-5.1); Sodium 138 mmol/L (136-145); Total Protein 7.3 g/dL (6.6-8.7)
[2025-11-01 14:00] LABS: Acetaminophen < 5.0 ug/mL (10-30); Alcohol Level < 10 mg/dL (0-10); Salicylate < 0.3 mg/dL (3-10)
--- NOTE | 2025-11-01 14:02 | PC.PHAR ---
Per pharmacy-pt is on day 9 of 10 day therapy of Augmentin 875 bid.
[2025-11-01 14:28] LABS: PCP Screen Urine Negative (Negative)
[2025-11-01 16:36] VITALS: BP 163/89; PULSE 79; RESP 20; TEMP 37.2; O2SAT 98
[2025-11-01 21:03] VITALS: BP 107/62; PULSE 53; RESP 18; TEMP 36.6; O2SAT 98
[2025-11-02 06:00] VITALS: BP 135/86; PULSE 56; RESP 17; TEMP 37.1; O2SAT 97
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
[2025-11-02 14:00] VITALS: BP 125/82; PULSE 105; RESP 15; TEMP 37; O2SAT 96
[2025-11-02 21:03] VITALS: BP 138/83; PULSE 61; RESP 16; TEMP 36.3; O2SAT 96
[2025-11-03 05:55] VITALS: BP 140/94; PULSE 82; RESP 18; TEMP 36.6; O2SAT 99
--- NOTE | 2025-11-03 11:14 | PC.NURSE ---
pt continues to refuse to take his atorvastatin stating that they are not his.
[2025-11-03 12:58] VITALS: BP 131/87; PULSE 65; RESP 15; TEMP 36.3; O2SAT 99
--- NOTE | 2025-11-03 13:15 | PC.NURSE ---
pt observed walking down hallway holding conversation with himself.
--- NOTE | 2025-11-03 17:27 | P.NPUPN_ITS ---
Subjective NPU 2 Subjective: Patient presented today reporting he was feeling better with his medications restarted. He endorsed that he felt he will be ready to go home but stated that his daughter felt that things are better she is wanted to make sure he was on the right medication. We discussed that we would work with the social work team tomorrow to try to identify whether or not his reports of the situation are reflective of their concerns. He denied any side effects of medication. Mental Status Exam 2 MSE Comments: This is a well-nourished, well-developed white male with adequate dress, grooming and eye contact. No abnormal movements. Cooperative with exam in no acute distress. Speech was normal rate and volume. Mood described as better affect congruent and less tearful. Thought process organized. Thought content: Patient denied any suicidal or homicidal ideations, there were no delusions reported or noted, he denied any auditory or visual hallucinations which were all significant improvements from yesterday. Attention and concentration were intact and memory appeared reliable but none were formally tested. He is alert and oriented x3. Insight and judgment are improving. Impulse control limited. Vitals/I&O/Wt Last Vital Signs Temp 97.3 F L 11/03/25 12:58 Pulse 65 11/03/25 12:58 Resp 15 11/03/25 12:58 BP 131/87 11/03/25 12:58 Pulse Ox 99 11/03/25 12:58 O2 Del Method Room Air 11/03/25 12:58 Weight last 48 hrs Weight 75.387 kg Data NPU 11/01/25 13:24 11/01/25 13:24 A&P Assessment and plan 1. Major depressive disorder, recurrent, mild: 2. Generalized anxiety disorder: 3. Acute psychosis: Plan: This is a 55-year-old white male with a significant history of emotional/mood dysregulation and being off of his medication for some time with an openness to restart his medication and treatment. 1. Continue current medication. We will restart Abilify 10 mg p.o. every morning and Prozac 20 mg p.o. every morning initially. 2. Continue every 15 minute checks for safety. 3. Encourage individual, group and milieu therapies. 4. Encourage sober living treatment at the highest level of care to which he is willing to commit. 5. Obtain collateral information especially from family. PDMP PDMP Reviewed: Not Reviewed Involuntary Hold Information 2 Hold Status: Legal Status: 96 Hour Hold Date/Time Hold Expires: 11/07/25 @1305 96 Hour Hold: 96 Hour Involuntary Admission: Yes Attestations NPU 2 Medical Necessity Statement*: Inpatient hospitalization is medically necessary and the clinically appropriate intervention at this time. We will monitor medications and make changes as indicated. Likely length of stay 1-4 days. Coding Level of Care Code Acute Code for Chg Fwd Diagnoses Major depressive disorder, recurrent, mild F33.0 Generalized anxiety disorder F41.1 Acute psychosis F23
[2025-11-03 20:17] VITALS: BP 126/76; PULSE 58; RESP 18; TEMP 36.2; O2SAT 96
[2025-11-04 06:00] VITALS: BP 140/86; PULSE 74; RESP 16; TEMP 36.3; O2SAT 96
[2025-11-04] MEDS: ATORVASTATIN 20 MG TABLET PO (08:37)
--- NOTE | 2025-11-04 10:34 | PC.NURSE ---
pt daughter phone call pt daughter called this am and stated that pt has not been taking his meds at home. states that neighbors are complaining because pt is actively yelling at himself in the apartment complex. pt states he does not need to be on medication and that they dont work for him so he stops taking them however he is not interested in a long lasting shot.
--- NOTE | 2025-11-04 10:38 | PC.NURSE ---
pt phone call pt daughter was on the phone with patient and pt began yelling 'what do you know are you a doctor' and hung up. he then requested that his daughter be taken off of his list of people to speak to.
--- NOTE | 2025-11-04 11:27 | PC.NURSE ---
pt behavior when rounding on pt, pt noticed to be talking to himself in his room during rounding.
--- NOTE | 2025-11-04 13:03 | P.NPUPN_ITS ---
Subjective NPU 2 Subjective: Patient presented today reporting that he is doing all right. He did not have any explanation for why he was refusing the medication that he reported he was taking that have been restarted. But he then changed his story and said that he had only restarted the Prozac. We discussed the fact that the symptoms and signs that people reporting that raise concerns were related to some psychosis. Reports of him being heard yelling to himself in his house when no one else was there and concerns about psychotic behavior. He at first tried to deny this was a fact and then reported I guess I do for myself. But offered no explanation and under this line of questioning much of the conversation was met with very inappropriate and uncomfortable laughter. We discussed that it was our goal during this 96-hour hold. To get to the bottom of why he is speaking to himself and given the concern for psychosis understanding why he is unwilling to engage in the 1 treatment that is likely to assist him in diminishing that condition. He denies any side effects to the medication but is only taking the Prozac. He reports that somebody at some places that he went to after his previous hospitalization took him off of the Abilify and said that he did not need that medication only the Prozac. Mental Status Exam 2 MSE Comments: This is a well-nourished, well-developed white male with adequate dress, grooming and eye contact. No abnormal movements except for mild psychomotor agitation. Cooperative with exam in mild distress. Speech was slightly increased rate l rate and volume. Mood described as better, affect congruent and less tearful but anxious and with some inappropriate laughter. Thought process organized. Thought content: Patient denied any suicidal or homicidal ideations, there were no delusions reported or noted, he denied any auditory or visual hallucinations, but there are concerns that he is trying to downplay his symptoms so that he can discharge as staff report seeing him speak to himself at different times, hearing him talking to himself in his room etc. Attention and concentration were intact and memory appeared possibly unreliable likely intentionally but none were formally tested. He is alert and oriented x person and place but is unclear if he has insight into the purpose of this admission. Insight and judgment are limited. Impulse control limited versus impaired. Vitals/I&O/Wt Last Vital Signs Temp 97.3 F L 11/04/25 06:00 Pulse 74 11/04/25 06:00 Resp 16 11/04/25 06:00 BP 140/86 11/04/25 06:00 Pulse Ox 96 11/04/25 06:00 O2 Del Method Room Air 11/04/25 06:00 Weight last 48 hrs Weight 75.387 kg Data NPU 11/01/25 13:24 11/01/25 13:24 A&P Assessment and plan 1. Major depressive disorder, recurrent, mild: 2. Generalized anxiety disorder: 3. Acute psychosis: Plan: This is a 55-year-old white male with a significant history of emotional/mood dysregulation and being off of his medication for some time with an openness to restart his medication and treatment. 1. Continue current medication. We will restart Abilify 10 mg p.o. every morning and Prozac 20 mg p.o. every morning initially. Patient currently refusing the Abilify. 2. Continue every 15 minute checks for safety. 3. Encourage individual, group and milieu therapies. 4. Encourage sober living treatment at the highest level of care to which he is willing to commit. 5. Obtain collateral information especially from family. 6. Observe against the backdrop of the 96-hour hold. Staff reporting signs of psychosis that he is downplaying. PDMP PDMP Reviewed: Not Reviewed Involuntary Hold Information 2 Hold Status: Legal Status: 96 Hour Hold Date/Time Hold Expires: 11/07/25 @1305 96 Hour Hold: 96 Hour Involuntary Admission: Yes Attestations NPU 2 Medical Necessity Statement*: Inpatient hospitalization is medically necessary and the clinically appropriate intervention at this time. We will monitor medications and make changes as indicated. Likely length of stay 3-5 days. Coding Level of Care Code Acute Code for Chg Fwd Diagnoses Major depressive disorder, recurrent, mild F33.0 Generalized anxiety disorder F41.1 Acute psychosis F23
[2025-11-04 14:00] VITALS: BP 149/102; PULSE 85; RESP 17; O2SAT 99
[2025-11-04 20:56] VITALS: BP 141/84; PULSE 81; RESP 20; TEMP 36.7; O2SAT 96
[2025-11-05 05:27] VITALS: BP 121/81; PULSE 79; RESP 18; TEMP 36.3; O2SAT 97
[2025-11-05] MEDS: ATORVASTATIN 20 MG TABLET PO (08:37)
[2025-11-05 14:00] VITALS: BP 124/73; PULSE 113; RESP 17; TEMP 36.4; O2SAT 95
--- NOTE | 2025-11-05 17:44 | P.NPUPN_ITS ---
Subjective NPU 2 Subjective: Patient presented today reporting that he is doing okay. He was somewhat more isolative today per staff reports and direct observation. He started taking his Abilify as prescribed but gave no real reason for the change in heart. We discussed the importance of him maintaining his medication regimen for his mental health and to combat the apparent psychosis. He did not report any side effects to his medication. Mental Status Exam 2 MSE Comments: This is a well-nourished, well-developed white male with adequate dress, grooming and eye contact. No abnormal movements except for mild psychomotor agitation. Cooperative with exam in mild distress. Speech was slightly increased rate l rate and volume. Mood described as better, affect congruent and less tearful but anxious and with some inappropriate laughter. Thought process organized. Thought content: Patient denied any suicidal or homicidal ideations, there were no delusions reported or noted, he denied any auditory or visual hallucinations, but there are concerns that he is trying to downplay his symptoms so that he can discharge as staff report seeing him speak to himself at different times, hearing him talking to himself in his room etc. Attention and concentration were intact and memory appeared possibly unreliable likely intentionally but none were formally tested. He is alert and oriented x person and place but is unclear if he has insight into the purpose of this admission. Insight and judgment are limited. Impulse control limited versus impaired. Vitals/I&O/Wt Last Vital Signs Temp 98.0 F 11/05/25 19:46 Pulse 90 11/05/25 19:46 Resp 18 11/05/25 19:46 BP 124/84 11/05/25 19:46 Pulse Ox 96 11/05/25 19:46 O2 Del Method Room Air 11/05/25 19:46 Data NPU 11/01/25 13:24 11/01/25 13:24 A&P Assessment and plan 1. Major depressive disorder, recurrent, mild: 2. Generalized anxiety disorder: 3. Acute psychosis: Plan: This is a 55-year-old white male with a significant history of emotional/mood dysregulation and being off of his medication for some time with an openness to restart his medication and treatment. 1. Continue current medication. We will restart Abilify 10 mg p.o. every morning and Prozac 20 mg p.o. every morning initially. Patient currently now taking the Abilify. 2. Continue every 15 minute checks for safety. 3. Encourage individual, group and milieu therapies. 4. Encourage sober living treatment at the highest level of care to which he is willing to commit. 5. Obtain collateral information especially from family. 6. Observe against the backdrop of the 96-hour hold. Staff reporting signs of psychosis that he is downplaying. PDMP PDMP Reviewed: Not Reviewed Involuntary Hold Information 2 Hold Status: Legal Status: 96 Hour Hold Date/Time Hold Expires: 11/07/25 @1305 96 Hour Hold: 96 Hour Involuntary Admission: Yes Attestations NPU 2 Medical Necessity Statement*: Inpatient hospitalization is medically necessary and the clinically appropriate intervention at this time. We will monitor medications and make changes as indicated. Likely length of stay 3-5 days. Coding Level of Care Code Acute Code for [facility] Fwd Diagnoses Major depressive disorder, recurrent, mild F33.0 Generalized anxiety disorder F41.1 Acute psychosis F23
[2025-11-05 19:46] VITALS: BP 124/84; PULSE 90; RESP 18; TEMP 36.7; O2SAT 96
[2025-11-06 04:23] VITALS: BP 124/92; PULSE 98; RESP 18; O2SAT 96
[2025-11-06] MEDS: ATORVASTATIN 20 MG TABLET PO (08:53)
[2025-11-06 14:00] VITALS: BP 149/93; PULSE 77; RESP 17; TEMP 36.3; O2SAT 100
--- NOTE | 2025-11-06 19:17 | P.NPUPN_ITS ---
Subjective NPU 2 Subjective: Patient presented today reporting that he is doing good. He is tolerating the Abilify without incident taking all of his medications. He was once again focused on when discharge could occur and we discussed that we were considering the options but that him getting on the long-acting injectable would make a big difference. We discussed the risks, benefits and alternatives and he understood and agreed to proceed as documented in this note. He denied any side effects to the medication. Mental Status Exam 2 MSE Comments: This is a well-nourished, well-developed white male with adequate dress, grooming and eye contact. No abnormal movements except for mild psychomotor agitation. Cooperative with exam in mild distress. Speech was slightly increased rate l rate and volume. Mood described as better, affect congruent and less tearful but anxious and with some inappropriate laughter. Thought process organized. Thought content: Patient denied any suicidal or homicidal ideations, there were no delusions reported or noted, he denied any auditory or visual hallucinations, but there are concerns that he is trying to downplay his symptoms so that he can discharge as staff report seeing him speak to himself at different times, hearing him talking to himself in his room etc. Attention and concentration were intact and memory appeared possibly unreliable likely intentionally but none were formally tested. He is alert and oriented x person and place but is unclear if he has insight into the purpose of this admission. Insight and judgment are limited. Impulse control limited versus impaired. Vitals/I&O/Wt Last Vital Signs Temp 97.3 F L 11/06/25 20:23 Pulse 66 11/06/25 20:23 Resp 17 11/06/25 20:23 BP 155/95 11/06/25 20:23 Pulse Ox 99 11/06/25 20:23 O2 Del Method Room Air 11/06/25 20:23 Data NPU 11/01/25 13:24 11/01/25 13:24 A&P Assessment and plan 1. Major depressive disorder, recurrent, mild: 2. Generalized anxiety disorder: 3. Acute psychosis: Plan: This is a 55-year-old white male with a significant history of emotional/mood dysregulation and being off of his medication for some time with an openness to restart his medication and treatment. 1. Continue current medication. We will restart Abilify 10 mg p.o. every morning and Prozac 20 mg p.o. every morning initially. Patient currently now taking the Abilify. We discussed considering a long-acting injectable. 2. Continue every 15 minute checks for safety. 3. Encourage individual, group and milieu therapies. 4. Encourage sober living treatment at the highest level of care to which he is willing to commit. 5. Obtain collateral information especially from family. 6. Observe against the backdrop of the 96-hour hold. Staff reporting signs of psychosis that he is downplaying. PDMP PDMP Reviewed: Not Reviewed Involuntary Hold Information 2 Hold Status: Legal Status: 96 Hour Hold Date/Time Hold Expires: 11/07/25 @1305 96 Hour Hold: 96 Hour Involuntary Admission: Yes Attestations NPU 2 Medical Necessity Statement*: Inpatient hospitalization is medically necessary and the clinically appropriate intervention at this time. We will monitor medications and make changes as indicated. Likely length of stay 2-4 days. Coding Level of Care Code Acute Code for [facility] Fwd Diagnoses Major depressive disorder, recurrent, mild F33.0 Generalized anxiety disorder F41.1 Acute psychosis F23
[2025-11-06 20:23] VITALS: BP 155/95; PULSE 66; RESP 17; TEMP 36.3; O2SAT 99
[2025-11-07 05:37] VITALS: BP 147/99; PULSE 86; RESP 17; O2SAT 96
[2025-11-07] MEDS: ATORVASTATIN 20 MG TABLET PO (08:17)
--- NOTE | 2025-11-07 11:54 | P.NPUPN_ITS ---
Subjective NPU 2 Subjective: Patient endorsed being irritable and angry about the plan for the 21-day hold and now has backtracked on taking the long-acting injectable. He discussed feeling he does not have a problem and is not going to be taking that medication. We discussed the issues that have led to him being here and having that medication on board given his history of nonadherence would make the most sense treatment [place] plus he continues to be resistant to acknowledging that there even is an issue. He denied any side effects to the medication. Mental Status Exam 2 MSE Comments: This is a well-nourished, well-developed white male with adequate dress, grooming and eye contact. No abnormal movements except for mild psychomotor agitation. Cooperative with exam in mild distress. Speech was slightly increased rate l rate and volume. Mood described as better, affect congruent and less tearful but anxious and with some inappropriate laughter. Thought process organized. Thought content: Patient denied any suicidal or homicidal ideations, there were no delusions reported or noted, he denied any auditory or visual hallucinations, but there are concerns that he is trying to downplay his symptoms so that he can discharge as staff report seeing him speak to himself at different times, hearing him talking to himself in his room etc. Attention and concentration were intact and memory appeared possibly unreliable likely intentionally but none were formally tested. He is alert and oriented x person and place but is unclear if he has insight into the purpose of this admission. Insight and judgment are limited. Impulse control limited versus impaired. Vitals/I&O/Wt Last Vital Signs Temp 97.3 F L 11/06/25 20:23 Pulse 86 11/07/25 05:37 Resp 17 11/07/25 05:37 BP 147/99 11/07/25 05:37 Pulse Ox 96 11/07/25 05:37 O2 Del Method Room Air 11/07/25 05:37 Data NPU 11/01/25 13:24 11/01/25 13:24 A&P Assessment and plan 1. Major depressive disorder, recurrent, mild: 2. Generalized anxiety disorder: 3. Acute psychosis: Plan: This is a 55-year-old white male with a significant history of emotional/mood dysregulation and being off of his medication for some time with an openness to restart his medication and treatment. 1. Continue current medication. We will restart Abilify 10 mg p.o. every morning and Prozac 20 mg p.o. every morning initially. Patient currently now taking the Abilify. We discussed considering a long-acting injectable. 2. Continue every 15 minute checks for safety. 3. Encourage individual, group and milieu therapies. 4. Encourage sober living treatment at the highest level of care to which he is willing to commit. 5. Obtain collateral information especially from family. 6. Observe against the backdrop of the 96-hour hold. Staff reporting signs of psychosis that he is downplaying. 21-day hold paperwork filed hearing will be tomorrow. PDMP PDMP Reviewed: Not Reviewed Involuntary Hold Information 2 Hold Status: Legal Status: 96 Hour Hold Date/Time Hold Expires: 11/07/25 @1305 96 Hour Hold: 96 Hour Involuntary Admission: Yes Attestations NPU 2 Medical Necessity Statement*: Inpatient hospitalization is medically necessary and the clinically appropriate intervention at this time. We will monitor medications and make changes as indicated. Likely length of stay 2-4 days. Coding Level of Care Code Acute Code for Chg Fwd Diagnoses Major depressive disorder, recurrent, mild F33.0 Generalized anxiety disorder F41.1 Acute psychosis F23
--- NOTE | 2025-11-07 12:07 | PC.NURSE ---
pt at desk asking if he will be discharged today. this quality analyst/technical writer informed pt that a 21day hold was filed because at this time he is not ready to go come safely. this quality analyst/technical writer informed pt that Doctor was wanting pt to start the Abilify Asmtufii 960mg before discharge. pt asked if he would take the shot would he get to go home tomorrow and not be 21 dayed at that time informed pt I could not say that would be between him and the Doctor pt stated well I am not taking the shot. and walked away.
[2025-11-07 14:00] VITALS: BP 135/82; PULSE 77; RESP 16; TEMP 36.4; O2SAT 100
[2025-11-07 20:07] VITALS: BP 138/86; PULSE 72; RESP 18; TEMP 36.3; O2SAT 96
[2025-11-08 05:53] VITALS: BP 134/95; PULSE 84; RESP 18; TEMP 36.3; O2SAT 100
[2025-11-08] MEDS: ATORVASTATIN 20 MG TABLET PO (08:27)
[2025-11-08 13:57] VITALS: BP 157/97; PULSE 95; RESP 16; TEMP 36.6; O2SAT 98
[2025-11-08] MEDS: ARIPiprazole Maintena 400 MG IM (17:19)
--- NOTE | 2025-11-08 17:50 | P.NPUPN_ITS ---
Subjective NPU 2 Subjective: Patient presented today reporting that he is doing okay but continues to have frustration about being in the hospital. The Abilify Maintena injection was administered with his consent initially and then he backtracked showing great signs of his paranoia. After the injection was given within moments he was asking what we put in his body and why was he feeling weird. We discussed the fact that it would be impossible for a long-acting injectable to have a significant presence in his system in 5 minutes. A code 10 was called secondary to his level of agitation. Otherwise he denies side effects to the medication and we explained the 21-day hold process and what this means as far as medication and medication refusal. Mental Status Exam 2 MSE Comments: This is a well-nourished, well-developed white male with adequate dress, grooming and eye contact. No abnormal movements except for mild psychomotor agitation. Cooperative with exam in mild distress. Speech was slightly increased rate l rate and volume. Mood described as I really do not want to be here, affect congruent and anxious and with some inappropriate laughter. Thought process organized. Thought content: Patient denied any suicidal or homicidal ideations, there were no delusions reported or noted, he denied any auditory or visual hallucinations, but there are concerns that he is trying to downplay his symptoms so that he can discharge as staff report seeing him speak to himself at different times, hearing him talking to himself in his room etc. Attention and concentration were intact and memory appeared possibly unreliable likely intentionally but none were formally tested. He is alert and oriented x person and place but is unclear if he has insight into the purpose of this admission. Insight and judgment are limited. Impulse control limited versus impaired. Vitals/I&O/Wt Last Vital Signs Temp 98 F 11/08/25 13:57 Pulse 95 11/08/25 13:57 Resp 16 11/08/25 13:57 BP 157/97 11/08/25 13:57 Pulse Ox 98 11/08/25 13:57 O2 Del Method Room Air 11/08/25 13:57 Data NPU 11/01/25 13:24 11/01/25 13:24 A&P Assessment and plan 1. Major depressive disorder, recurrent, mild: 2. Generalized anxiety disorder: 3. Acute psychosis: Plan: This is a 55-year-old white male with a significant history of emotional/mood dysregulation and being off of his medication for some time with an openness to restart his medication and treatment. 1. Continue current medication. We will restart Abilify 10 mg p.o. every morning and Prozac 20 mg p.o. every morning initially. Patient currently now taking the Abilify. We discussed considering a long-acting injectable. Abilify Maintena 400 mg IM was initiated today with great resistance by patient. 2. Continue every 15 minute checks for safety. 3. Encourage individual, group and milieu therapies. 4. Encourage sober living treatment at the highest level of care to which he is willing to commit. 5. Obtain collateral information especially from family. 6. Observe against the backdrop of the 96-hour hold. Staff reporting signs of psychosis that he is downplaying. 21-day hold paperwork filed hearing was today at 11:00 AM. He did not attend but he was placed on a 21-day hold. PDMP PDMP Reviewed: Not Reviewed Involuntary Hold Information 2 Hold Status: Legal Status: 96 Hour Hold Date/Time Hold Expires: 11/29/2025 96 Hour Hold: 96 Hour Involuntary Admission: Yes Attestations NPU 2 Medical Necessity Statement*: Inpatient hospitalization is medically necessary and the clinically appropriate intervention at this time. We will monitor medications and make changes as indicated. Likely length of stay 3-7 days. Coding Level of Care Code Acute Code for Chg Fwd Diagnoses Major depressive disorder, recurrent, mild F33.0 Generalized anxiety disorder F41.1 Acute psychosis F23
[2025-11-08] MEDS: benzocaine 20% 7 gm 1 APPLIC MUCOUS MEM (18:53)
[2025-11-08 22:00] VITALS: RESP 16
--- NOTE | 2025-11-08 22:57 | PC.NURSE ---
vitals not done per nurse, pt asleep, pt resp 16, will collect vitals when pt is awake
[2025-11-09 05:05] VITALS: BP 128/91; PULSE 72; RESP 20; O2SAT 97
[2025-11-09] MEDS: ATORVASTATIN 20 MG TABLET PO (09:24)
--- NOTE | 2025-11-09 13:34 | P.NPUPN_ITS ---
Subjective NPU 2 Subjective: Patient presented today reporting that he is doing much better than yesterday. He continues to apologize for his irrational explosion. He reports that this is the best he has ever felt after reporting that he felt some strange things when he got that shot wondering what we had put his body. We discussed the fact that Dr. Galvez would be here tomorrow and that he would continue his treatment with understanding of the path we have been on thus far. He denied any side effects of medication. Mental Status Exam 2 MSE Comments: This is a well-nourished, well-developed white male with adequate dress, grooming and eye contact. No abnormal movements except for mild psychomotor agitation. Cooperative with exam in mild distress. Speech was slightly increased rate and normal volume. Mood described as I feel really good, affect congruent with less anxious/inappropriate laughter. Thought process organized. Thought content: Patient denied any suicidal or homicidal ideations, there were no delusions reported and less paranoid noteworthy, he denied any auditory or visual hallucinations, but there are concerns that he is trying to downplay his symptoms so that he can discharge as staff report seeing him speak to himself at different times, hearing him talking to himself in his room etc. Attention and concentration were intact and memory appeared possibly unreliable likely intentionally but none were formally tested. He is alert and oriented x person and place but is unclear if he has insight into the purpose of this admission. Insight and judgment are limited. Impulse control limited versus impaired. Vitals/I&O/Wt Last Vital Signs Temp 98 F 11/08/25 13:57 Pulse 72 11/09/25 05:05 Resp 20 H 11/09/25 05:05 BP 128/91 11/09/25 05:05 Pulse Ox 97 11/09/25 05:05 O2 Del Method Room Air 11/09/25 05:05 Data NPU 11/01/25 13:24 11/01/25 13:24 A&P Assessment and plan 1. Major depressive disorder, recurrent, mild: 2. Generalized anxiety disorder: 3. Acute psychosis: Plan: This is a 55-year-old white male with a significant history of emotional/mood dysregulation and being off of his medication for some time with an openness to restart his medication and treatment. 1. Continue current medication. We will restart Abilify 10 mg p.o. every morning and Prozac 20 mg p.o. every morning initially. Patient currently now taking the Abilify. We discussed considering a long-acting injectable. Abilify Maintena 400 mg IM was initiated 11/08/2025 with great resistance by patient, however today he reports feeling wonderful and better than he has felt in a while. 2. Continue every 15 minute checks for safety. 3. Encourage individual, group and milieu therapies. 4. Encourage sober living treatment at the highest level of care to which he is willing to commit. 5. Obtain collateral information especially from family. 6. Observe against the backdrop of the 96-hour hold. Staff reporting signs of psychosis that he is downplaying. 21-day hold paperwork filed hearing was 11/08/2025 at 11:00 AM. He did not attend but he was placed on a 21-day hold 11/08/2025. PDMP PDMP Reviewed: Not Reviewed Involuntary Hold Information 2 Hold Status: Legal Status: 96 Hour Hold Date/Time Hold Expires: 11/29/2025 96 Hour Hold: 96 Hour Involuntary Admission: Yes Attestations NPU 2 Medical Necessity Statement*: Inpatient hospitalization is medically necessary and the clinically appropriate intervention at this time. We will monitor medications and make changes as indicated. Likely length of stay 3-7 days. Coding Level of Care Code Acute Code for [facility] Fwd Diagnoses Major depressive disorder, recurrent, mild F33.0 Generalized anxiety disorder F41.1 Acute psychosis F23
[2025-11-09 14:00] VITALS: BP 145/88; PULSE 99; RESP 16; TEMP 36.4; O2SAT 96
[2025-11-09 20:16] VITALS: BP 124/91; PULSE 93; RESP 16; TEMP 36.6; O2SAT 97
[2025-11-10 06:00] VITALS: BP 127/88; PULSE 66; TEMP 36.6; O2SAT 98
[2025-11-10] MEDS: ATORVASTATIN 20 MG TABLET PO (08:14)
[2025-11-10 14:00] VITALS: BP 149/91; PULSE 73; RESP 17; TEMP 36.3; O2SAT 100
--- NOTE | 2025-11-10 16:03 | P.NPUPN_ITS ---
Subjective NPU 2 Subjective: 55-year-old male with a history of psych osis currently on a 21-day hold. The patient had expressed confusion as to why he was brought in here into the hospital. He had stated that he was feeling much better. He had reported that he had been more confused. He had acknowledged a prior hospitalization in the past. He denied any drug use at this time. He had been less isolative on the milieu. He had reported that his family member had been concerned about his wellbeing and that is why he had been hospitalized. Mental Status Exam 2 MSE Comments: This is a well-nourished, well-developed white male with adequate dress, grooming and eye contact. No abnormal movements except for mild psychomotor agitation. He was cooperative with exam in mild distress. Speech was normal in regards to rate, rhythm, and prosody. Mood described as good. His affect was labile still with some odd laughter appreciated. Thought process was linear logical and goal-directed. Thought content: Patient denied any suicidal or homicidal ideations. There was no evidence of any delusional thinking. He did not appear to be responding to internal stimuli. Attention and concentration were intact and memory appeared possibly unreliable likely intentionally but none were formally tested. He is alert and oriented x person and place and time. Insight and judgment are limited. Impulse control was improving. Vitals/I&O/Wt Last Vital Signs Temp 97.4 F L 11/10/25 14:00 Pulse 73 11/10/25 14:00 Resp 17 11/10/25 14:00 BP 149/91 11/10/25 14:00 Pulse Ox 100 11/10/25 14:00 O2 Del Method Room Air 11/10/25 06:00 Weight last 48 hrs Weight 75.977 kg Data NPU 11/01/25 13:24 11/01/25 13:24 A&P Assessment and plan 1. Acute psychosis: 2. Major depressive disorder, recurrent, mild: 3. Generalized anxiety disorder: Plan: This is a 55-year-old white male with a significant history of emotional/mood dysregulation and being off of his medication for some time with an openness to restart his medication and treatment. 1. Increase abilify to 15mg daily and Prozac 20 mg p.o. every morning initially. Patient currently now taking the Abilify. We discussed considering a long-acting injectable. Abilify Maintena 400 mg IM was initiated 11/08/2025 with great resistance by patient, however today he reports feeling wonderful and better than he has felt in a while. 2. Continue every 15 minute checks for safety. 3. Encourage individual, group and milieu therapies. 4. Encourage sober living treatment at the highest level of care to which he is willing to commit. 5. Obtain collateral information especially from family. 6. Observe against the backdrop of the 96-hour hold. Staff reporting signs of psychosis that he is downplaying. 21-day hold paperwork filed hearing was 11/08/2025 at 11:00 AM. He did not attend but he was placed on a 21-day hold 11/08/2025. PDMP PDMP Reviewed: Not Reviewed Involuntary Hold Information 2 Hold Status: Legal Status: 96 Hour Hold Date/Time Hold Expires: 11/29/2025 96 Hour Hold: 96 Hour Involuntary Admission: Yes Attestations NPU 2 Medical Necessity Statement*: Inpatient hospitalization is medically necessary and the clinically appropriate intervention at this time. We will monitor medications and make changes as indicated. The patient's likely length of stay is 3-7 days. Coding Level of Care Code Acute Code for Chg Fwd Diagnoses Acute psychosis F23 Major depressive disorder, recurrent, mild F33.0 Generalized anxiety disorder F41.1
[2025-11-10 22:00] VITALS: RESP 14
--- NOTE | 2025-11-10 22:19 | PC.NURSE ---
vitals not done, pt asleep in bed, nurse aware, vitals will be collected when pt wakes up, resp 14
[2025-11-11 04:48] VITALS: BP 120/80; PULSE 94; RESP 18; TEMP 36.3; O2SAT 94
[2025-11-11 05:48] VITALS: BP 147/88; PULSE 73; RESP 22; TEMP 36.9; O2SAT 96
[2025-11-11] MEDS: ATORVASTATIN 20 MG TABLET PO (08:07)
--- NOTE | 2025-11-11 11:03 | PC.NURSE ---
Pt.'s daughter called and said she had just gotten a call from pt. Pt. was cursing at her and telling her to get her things out of his house and to take the things she had bought him that he did not want them. Pt. said he was better for a couple of days after he had gotten a shot, but she did not feel like he was ready to come home, and she could not deal with him like this.
[2025-11-11 14:00] VITALS: BP 110/77; PULSE 106; RESP 16; TEMP 36.8; O2SAT 96
--- NOTE | 2025-11-11 16:29 | P.NPUPN_ITS ---
Subjective NPU 2 Subjective: 55-year-old male with a history of psych osis currently on a 21-day hold. The patient had reported improved sleep. He had reported that he was feeling better. He had reported that the reason that he was here was because family members were concerned about him. The patient had denied depressed mood. He had reported that he had some continued pain issues in his left hand. He had reported a history of reflex sympathetic dystrophy. He had denied any drug or alcohol use. He had reported having some concerns in the past about anxiety but stated that he had felt more relaxed here in the hospital. Mental Status Exam 2 MSE Comments: This is a well-nourished, well-developed white male with adequate dress, grooming and eye contact. No abnormal movements except for mild psychomotor agitation. He was cooperative with exam in mild distress. Speech was normal in regards to rate, rhythm, and prosody. Mood described as better. His affect was mostly appropriate with some brief periods of inappropriate laughter. Thought process was linear logical and goal-directed. Thought content: Patient denied any suicidal or homicidal ideation. There was no evidence of any delusional thinking. He did not appear to be responding to internal stimuli. Attention and concentration were intact and memory appeared grossly intact. He is alert and oriented x person and place and time. Insight and judgment are limited. Impulse control was improving. Vitals/I&O/Wt Last Vital Signs Temp 98.3 F 11/11/25 14:00 Pulse 106 H 11/11/25 14:00 Resp 16 11/11/25 14:00 BP 110/77 11/11/25 14:00 Pulse Ox 96 11/11/25 14:00 O2 Del Method Room Air 11/11/25 14:00 Weight last 48 hrs Weight 75.977 kg Data NPU 11/01/25 13:24 11/01/25 13:24 A&P Assessment and plan 1. Acute psychosis: 2. Major depressive disorder, recurrent, mild: 3. Generalized anxiety disorder: Plan: This is a 55-year-old white male with a significant history of emotional/mood dysregulation and being off of his medication for some time with an openness to restart his medication and treatment. 1. Continue abilify at 15mg daily and Prozac 20 mg p.o. luz. Patient currently now taking the Abilify. We discussed considering a long-acting injectable. Abilifjoe Maintena 400 mg IM was initiated 11/08/2025 with great resistance by patient, however today he reports feeling wonderful and better than he has felt in a while. 2. Continue every 15 minute checks for safety. 3. Encourage individual, group and milieu therapies. 4. Encourage sober living treatment at the highest level of care to which he is willing to commit. 5. Obtain collateral information especially from family. 6. Observe against the backdrop of the 96-hour hold. Staff reporting signs of psychosis that he is downplaying. 21-day hold paperwork filed hearing was 11/08/2025 at 11:00 AM. He did not attend but he was placed on a 21-day hold 11/08/2025. PDMP PDMP Reviewed: Not Reviewed Involuntary Hold Information 2 Hold Status: Legal Status: 96 Hour Hold Date/Time Hold Expires: 11/29/2025 96 Hour Hold: 96 Hour Involuntary Admission: Yes Attestations NPU 2 Medical Necessity Statement*: Inpatient hospitalization is medically necessary and the clinically appropriate intervention at this time. We will monitor medications and make changes as indicated. The patient's likely length of stay is 2-4 days. Coding Level of Care Code Acute Code for g Fwd Diagnoses Acute psychosis F23 Major depressive disorder, recurrent, mild F33.0 Generalized anxiety disorder F41.1
[2025-11-11 19:38] VITALS: BP 122/78; PULSE 77; RESP 18; TEMP 36.6; O2SAT 96
[2025-11-12 05:25] VITALS: BP 145/90; PULSE 87; RESP 16; TEMP 36.3; O2SAT 97
[2025-11-12] MEDS: ATORVASTATIN 20 MG TABLET PO (08:00)
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
[2025-11-12 13:46] VITALS: BP 126/83; PULSE 81; RESP 16; TEMP 36.4; O2SAT 97
[2025-11-12 14:00] VITALS: BP 154/91; PULSE 95; RESP 16; TEMP 36.3; O2SAT 98
== END 2025-11-12 14:30 | disposition home or self-care (01) | DRG 885 ==
LOC: ER 15:36 → NP 15:40
PROVIDERS: Admitting Provider Psychiatry & Neurology Psychiatry; Emergency Provider Emergency Medicine; PCP Family Medicine; Visit Provider Psychiatry & Neurology Psychiatry
DX: F23 Brief psychotic disorder (principal); F33.0 Major depressive disorder, recurrent, mild; F41.1 Generalized anxiety disorder; T43.596A Underdosing of other antipsychotics and neuroleptics, initial encounter; T43.226A Underdosing of selective serotonin reuptake inhibitors, initial encounter; Z91.128 Patient's intentional underdosing of medication regimen for other reason; Y92.9 Unspecified place or not applicable; F17.290 Nicotine dependence, other tobacco product, uncomplicated
CPT/HCPCS: 36415; 80053; 80306; 80307; 85025; 96372; 97150; 97165; 99285; J9999